=== PATIENT | female | born 1955 | race Hispanic/Latino ===

== ENCOUNTER 2025-01-17 14:05 | Emergency (ER) | payer MEDICARE ==
[~2025-01-17] VITALS: Ht 149.9 cm; Wt 80.7 kg
--- NOTE | 2025-01-17 14:12 | ERN ---
ED Note History of Present Illness Stated Complaint: RT ANKLE INJURY Chief Complaint: Ankle Problem Time Seen by MD: 14:08 Dictation: PATIENT IS A 69-YEAR-OLD FEMALE HERE WITH RIGHT LATERAL ANKLE PAIN SWELLING ONSET 1 HOUR PRIOR TO ARRIVAL. SHE STATES SHE WAS WORKING AT HOME ON A STEP STOOL STEP-DOWN AND TWISTED HER ANKLE. HER HAD AN ERNESTO WRAP AND APPLY THE ERNESTO WRAP. SHE HAS TAKEN NOTHING PRIOR TO ARRIVAL FOR PAIN HOWEVER SHE HAS BEEN ABLE TO ABLE TO WEIGHT BEAR SINCE THE INJURY. DISTAL NEUROVASCULAR CMS INTACT. PATIENT CURRENTLY REFUSING PRN ANALGESIA IN THE TRIAGE ROOM STATES PAIN IS 3/10 BUT I DO NOT NEED ANYTHING Allergies: Coded Allergies: No Known Allergies (Unverified Allergy, Unknown, 01/17/25) Past Medical History Past Medical History: No Pertinent History Surgical History: Other History: Not Applicable RN Note Reviewed/Agreed w/PFSH: Yes Review of System Dictation CONSTITUTIONAL: NEGATIVE EXCEPT FOR HPI HEAD/FACE: NEGATIVE EXCEPT FOR HPI EENT: NEGATIVE EXCEPT FOR HPI RESPIRATORY: NEGATIVE EXCEPT FOR HPI GASTROINTESTINAL/ABDOMINAL: NEGATIVE EXCEPT FOR HPI GENITOURINARY: NEGATIVE EXCEPT FOR HPI MUSCULOSKELETAL: NEGATIVE EXCEPT FOR HPI RIGHT LATERAL ANKLE PAIN SWELLING INTEGUMENTARY: NEGATIVE EXCEPT FOR HPI NEUROLOGICAL/PSYCH: NEGATIVE EXCEPT FOR HPI HEMATOLOGIC/LYMPHATIC: NEGATIVE EXCEPT FOR HPI ALL SYSTEMS NEGATIVE, EXCEPT NOTED ABOVE. 13 POINT REVIEW OF SYSTEMS ASSESSED AND ALL NEGATIVE EXCEPT FOR ABOVE. Initial Vital Sign VS Vital Signs Date Time Temp Pulse Resp B/P (MAP) Pulse Ox O2 Delivery O2 Flow Rate FiO2 01/17/25 14:05 98.2 81 20 210/90 99 Room Air* 0 21 Physical Exam Dictation VITAL SIGNS REVIEWED GENERAL APPEARANCE: ALERT, ORIENTED X 3, MILD ACUTE DISTRESS, WELL DEVELOPED, NOURISHED. OBESE HEAD AND FACE: NON-TRAUMATIC. EYES: PERRL, PINK CONJUNCTIVAS, EYELID NO TRAUMA, ANTERIOR CHAMBER WITH ARCUS SENILIS. EARS: PINNAS INTACT AND NO SIGNS OF TRAUMA OR ERYTHEMA EAR CANALS CLEAR AND NO DISCHARGE TM NO ERYTHEMA NOSE: NO DISCHARGE, NO BLEEDING. OROPHARYNX: MOUTH NORMAL, TONGUE PINK, PHARYNX CLEAR,NO ERYTHEMA, TONSILS NO EXUDATES, NO ABSCESSES NOTED, MUCOUS MEMBRANE MOIST NECK: SUPPLE, NON-TENDER, NO THYROMEGALY, NO MASSES, NO JVD, NO BRUITS BREAST:DEFERRED CHEST:NO TENDERNESS, NO CREPITUS, NO PARADOXICAL MOVEMENT, NO RETRACTIONS LUNGS:CLEAR, WELL-VENTILATED, SYMMETRIC, NO RALES, NO WHEEZING, NO RHONCHI, NO STRIDOR, GOOD BREATH SOUNDS BILATERALLY HEART: REGULAR RATE, REGULAR RHYTHM, NO MURMUR, NO GALLOPS VASCULAR: NO PERIPHERAL EDEMA, ABDOMEN: SOFT, POSITIVE BOWEL SOUNDS, NONDISTENDED, NO GUARDING, NONTENDER, NO REBOUND, NO MASSES NO HEPATOMEGALY, NO SPLENOMEGALY, NO AVITIA'S SIGN, NO HERNIAS. RECTAL: DEFERRED GENITAL: DEFERRED NEUROLOGICAL: NORMAL SPEECH, MOTOR FUNCTION INTACT, SENSORY FUNCTION INTACT MUSCULOSKELETAL: NECK NONTENDER, FULL RANGE OF MOTION, BACK NONTENDER, FULL RANGE OF MOTION, EXTREMITIES: RIGHT LATERAL MALLEOLAR TENDERNESS SWELLING. SKIN IS INTACT. DECREASED RANGE OF MOTION SECONDARY TO PAIN. SKIN: COLOR PINK, DRY, NO TURGOR, NO RASH, NO LACERATIONS, NO ABRASIONS, NO CONTUSIONS. LYMPHATIC: DEFERRED Results (Laboratory/Radiology) Laboratory/Radiology 1515/RIGHT ANKLE X-RAY DEMONSTRATES BIMALLEOLAR FRACTURE. Labs Reviewed?: Yes ED Course ED Course Orders Procedure Category Date Status Time Ankle Comp 3vws Rt RAD 01/17/25 Taken 14:09 Posterior Ankle Splint MEAGAN.ER 01/17/25 In Process 14:09 Crutches W/Training CPOE 01/17/25 Transmitted (Er) 14:09 Apply Ice Pack To: CPOE 01/17/25 Transmitted (Er) 14:09 Clonidine Hcl 0.2 Mg PHA 01/17/25 Verified Tablet (Catapres 0. 16:00 Vital Signs Date Time Temp Pulse Resp B/P (MAP) Pulse Ox O2 Delivery O2 Flow Rate FiO2 01/17/25 14:07 98.2 81 20 210/90 99 Room Air 01/17/25 14:05 98.2 81 20 210/90 99 Room Air* 0 21 1515/POSTERIOR SPLINT APPLIED BY RN. NEUROVASCULAR CMS INTACT POST PLACEMENT. CRUTCHES WERE PROVIDED 1528/SPOKE WITH PATIENT AND AT LENGTH THEY ARE RETURNING BACK TO [facility] WHERE THEY LIVE AND WERE HERE ON VACATION. SHE IS REFUSING ANY KIND OF P.R.N. ANALGESIA SAYS I DO NOT NEED ANYTHING. SHE DOES NOT WANT TO SEE A LOCAL ORTHOPEDIC SURGEON AND WE WILL SEE HER DOCTOR WHEN SHE GOT BACK TO [place]. QUESTIONS ANSWERED1 1550/PATIENT HAS A BLOOD PRESSURE OF 217/93. SHE STATES SHE HAS NOT SEEN A DO CTOR SINCE FIVE YEARS AGO AFTER COVID AND HAD NO IDEA THAT SHE HAD HYPERTENSION. PATIENT AGREED TO HAVE HER BLOOD PRESSURE TREATED IN THE EMERGENCY ROOM. WE WILL GIVE HER CLONIDINE 0.2 AND ALLOW TIME FOR AN APPROPRIATE RESPONSE. IN ADDITION SHE AND HER WERE STRONGLY ADVISED TO SEE A FAMILY DOCTOR WHEN THEY RETURN BACK TO [place] FOR HER ANKLE FRACTURE AND UNCONTROLLED HYPER TENSION. Medical Decision Making MDM MEDICAL DISCHARGE MAKING WAS BASED ON OFFERING PAIN MANAGEMENT WHICH PATIENT DECLINED. X-RAY OF RIGHT ANKLE DEMONSTRATES BIMALLEOLAR FRACTURE POSTERIOR SPLINT APPLIED WITH CRUTCHES PROVIDED NEUROVASCULAR CMS INTACT TO FOOT POST PLACEMENT PATIENT DISCHARGED HOME WITH TYLENOL WITH CODEINE FOR SEVERE PAIN REFERRED TO DR. NEFTALI ROBERTS/ORTHOPEDIC SURGEON DX & DISP Disposition: Discharge Departure Impression: Primary Impression: Closed bimalleolar fracture of right ankle Additional Impressions: Fall, Uncontrolled hypertension Condition: Stable Scripts Clonidine HCl (Clonidine HCl) 0.1 Mg Tablet 0.1 MG PO BID for 30 Days, #60 TAB Prov: AKIRA WADE 01/17/25 Additional Instructions: FOLLOW-UP WITH PRIMARY CARE PROVIDER IN 1 TO 2 DAYS. TAKE MEDICATIONS DIR ECTED HERE IN THE EMERGENCY ROOM. OKAY TO CONTINUE HOME MEDICATIONS UNLESS OTHERWISE DISCUSSED DURING YOUR VISIT IN THE EMERGENCY ROOM TODAY. RETURN TO YOUR NEAREST EMERGENCY ROOM IF SYMPTOMS WORSEN OR IF THERE IS NO IMPROVEMENT. CALL 911 IF YOU NEED IMMEDIATE ASSISTANCE. TAKE TYLENOL OR MOTRIN [id number] NEEDED AND IF NO CONTRAINDICATIONS ARE PRESENT. INCREASE ORAL HYDRATION. A WOUND CULTURE OR URINE CULTURE WAS ORDERED HERE IN THE EMERGENCY ROOM DEPARTMENT PLEASE FOLLOW-UP WITH PRIMARY CARE PROVIDER AND ADVISE THEM TO GET REPEAT PORTS FROM OUR FACILITY. IF YOU HAD ANY ERNESTO WRAP/SPLINTS THAT WERE APPLIED HERE, PLEASE DO NOT REMOVE THEM UNTIL YOU SEE YOUR PRIMARY CARE OR SPECIALTY. SPLINT/CRUTCHES/NO WEIGHT-BEARING UNTIL CLEARED BY YOUR ORTHOPEDIC SURGEON. ELEVATE RIGHT FOOT MUCH POSSIBLE WITH COOL COMPRESSES THREE TO 4 TIMES A DAY. ADDITIONALLY TAKE CLONIDINE TWICE A DAY DIRECTED. WHEN YOU RETURN BACK TO [facility], SEE YOUR PRIMARY CARE DOCTOR FOR BLOOD PRESSURE MANAGEMENT Referrals: NEFTALI ROBERTS DO Time of Disposition: 15:18 I have reviewed the case, and I agree with, Diagnosis and Plan AKIRA WADE Jan 17, 2025 14:12
--- NOTE | 2025-01-17 14:15 | NUR ---
ICE PACK APPLIED TO PT' S RIGHT ANKLE.
--- NOTE | 2025-01-17 14:20 | NUR ---
POSTERIOR ANKLE SPLINT APPLIED TO THE RIGHT LEG AND EDUCATION ON THE USE OF CRUTCHES WAS DEMONSTRATED TO THE PT. PT VERBALIZED UNDERSTANDING.
[2025-01-17 15:55] VITALS: RESP 15; TEMP 98.6; O2SAT 98
[2025-01-17 15:56] VITALS: BP 216/95; PULSE 98
[2025-01-17] MEDS ORDERED: CLON0.1T PO (15:56)
--- NOTE | 2025-01-17 16:11 | HMCIMG ---
EXAM: CR right ankle, 3 View. CLINICAL HISTORY: RIGHT MALLEOLAR PAIN SWELLING AFTER TWISTING AT HOME. COMPARISON: None provided. FINDINGS: There is an acute, complete oblique fracture through the distal fibular metadiaphysis located at the level of the ankle joint and extending cephalad. There is an acute, complete mildly fracture involving the medial malleolus. There is widening of the medial clear space concerning for rupture of the syndesmosis. There is diffuse soft tissue swelling. There is a small ankle joint effusion. There are small to moderate posterior and plantar calcaneal spurs. IMPRESSION: 1. Acute bimalleolar ankle fracture with widening of the medial clear space. Unstable fracture. Recommend orthopedic consult 2. Soft tissue swelling and small ankle joint effusion. 3. Small to moderate posterior and plantar calcaneal spurs. /[place]
== END 2025-01-17 16:21 | disposition home or self-care (01) ==
LOC: EDH 14:05
DX: S82.841A Displaced bimalleolar fracture of right lower leg, initial encounter for closed fracture (principal); I10 Essential (primary) hypertension; X50.1XXA Overexertion from prolonged static or awkward postures, initial encounter; Y93.89 Activity, other specified; Y92.89 Other specified places as the place of occurrence of the external cause; Y99.8 Other external cause status
CPT/HCPCS: 29515; 73610; 99283